=== PATIENT | male | born 1945 | race Caucasian/White ===

== ENCOUNTER 2018-03-06 23:39 | Emergency (ER) | payer MEDICARE, OTHER ==
[~2018-03-06] VITALS: Ht 180.3 cm; Wt 115.7 kg
--- NOTE | 2018-03-06 23:55 | NUR ---
PATIENT CAME FROM [facility] REPORT PATIENT WAS AGITATED ,THROWING FURNITURES AT THE FACILITY .HE IS 5150 FOR DANGER TO OTHERS .PATIENT IS CONFUSED .ON AND OFF FOLLOWS ISNTRUCTION .
[2018-03-07] MEDS ORDERED: ROSU5TAB12 PO (00:09)
[2018-03-07] MEDS ORDERED: MEMA10TA PO (00:09)
[2018-03-07] MEDS ORDERED: DONE10TA11 PO (00:09)
[2018-03-07] MEDS ORDERED: ESOM20CA PO (00:09)
[2018-03-07] MEDS ORDERED: MULT1TAB73 PO (00:09)
[2018-03-07] MEDS ORDERED: FLUO40CA49 PO (00:09)
--- NOTE | 2018-03-07 00:17 | NUR ---
MD :GIO AT BEDSIDE ,EXAMINED AND SPOKED WITH PATIENT .PATIENT AWAKE ,VERBALLY RESPONSIVE,APPEARS TO BE CALM . PLATE PREPARER AT BEDSIDE TO DO LABS .
[2018-03-07 00:40] LABS: ETHANOL < 3 MG/DL (0-0)
[2018-03-07 00:42] LABS: BASOPHILS # (AUTO) 0.1 K/uL (0.0-8.0); BASOPHILS % (AUTO) 0.7 % (0.0-2.0); EOSINOPHILS # (AUTO) 0.3 K/uL (0.0-0.7); EOSINOPHILS % (AUTO) 2.9 % (0.0-7.0); HEMATOCRIT 41.9 % (36.7-47.1); LYMPHOCYTES # (AUTO) 2.3 K/uL (20.0-40.0); LYMPHOCYTES % (AUTO) 25.1 % (20.5-51.5); MEAN CORPUSCULAR HEMOGLOBIN 29.7 uug (23.8-33.4); MEAN CORPUSCULAR HGB CONC 36 g/dL (32.5-36.3); MEAN CORPUSCULAR VOLUME 82.9 fL (73.0-96.2); MONOCYTES # (AUTO) 0.9 K/uL (2.0-10.0); NEUTROPHILS # (AUTO) 5.6 K/uL (1.8-8.9); NEUTROPHILS % (AUTO) 61.3 % (38.5-71.5); PLATELET COUNT (AUTO) 220 K/uL (152-348); RED BLOOD CELL COUNT(AUTO) 5.05 MIL/uL (4.06-5.63); WHITE BLOOD COUNT (AUTO) 9.2 K/uL (3.6-10.2)
[2018-03-07 00:43] LABS: CARBON DIOXIDE 24 mmol/L (21-32); CHLORIDE 105 mmol/L (98-107); CREATININE 1.5 mg/dL (0.6-1.3); GLUCOSE 153 mg/dL (74-106); POTASSIUM 3.1 mmol/L (3.5-5.1); UREA NITROGEN, BLOOD 20 mg/dL (7-18)
[2018-03-07 00:48] LABS: ALANINE AMINOTRANSFERASE 41 U/L (16-63); ALKALINE PHOSPHATASE 44 U/L (50-136); ASPARTATE AMINOTRANSFERASE 28 U/L (15-37); BILIRUBIN,DIRECT 0.2 mg/dL (0.0-0.2); BILIRUBIN,TOTAL 1.3 mg/dL (0.2-1.0)
--- NOTE | 2018-03-07 00:50 | NUR ---
PATIENT CAME AND HELP REORIENT PATIENT . PATIENT ALERT X1 TO NAME ONLY . ANSWER SIMPLE QUESTION YES AND NO . FOLLOW SIMPLE COMMANDS.NO RESPIRATORY DISTRESS .
[2018-03-07 00:51] LABS: ACETAMINOPHEN < 2.0 ug/mL (10-30)
[2018-03-07] MEDS ORDERED: POTASSIUM CHLORIDE 10 MEQ TAB.PRT.SR PO ONE (01:15)
--- NOTE | 2018-03-07 02:22 | NUR ---
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
--- NOTE | 2018-03-07 02:50 | NUR ---
Patient discharged to home in stable conditon. Written and verbal after care instructions given. Patient verbalizes understanding of instructions.NO belongings .v/s wnl . no respiratory distress ,denies pain when asked .patient steady of gait able to walk to the wheelchair . wheeled patient to the front ,patient is bringing patient home .
--- NOTE | 2018-03-07 02:50 | NUR ---
PER JULIANNE LEWIS PATIENT IS OK FOR DISCHARGE AND IS CLEARED BY HIM . JULIANNE LEWIS SPOKED WITH MD :GIO
[2018-03-07 03:50] VITALS: BP 144/75
== END 2018-03-07 03:00 | disposition home or self-care (01) ==
LOC: ER 23:43
DX: F29 Unspecified psychosis not due to a substance or known physiological condition (principal); E87.6 Hypokalemia; E78.00 Pure hypercholesterolemia, unspecified; K21.9 Gastro-esophageal reflux disease without esophagitis; F32.9 Major depressive disorder, single episode, unspecified; F03.90 Unspecified dementia, unspecified severity, without behavioral disturbance, psychotic disturbance, mood disturbance, and anxiety
CPT/HCPCS: 71045; 80048; 80076; 85025; 93005; 99285; A4663; G0480 ×2; G0481; 36415